=== PATIENT | female | born 1995 | race Caucasian/White ===

== ENCOUNTER 2017-03-17 13:21 | Emergency (ER) | payer OTHER ==
[2017-03-17 13:25] VITALS: TEMP 97.3; BMI 35.2
--- NOTE | 2017-03-17 14:29 | PDOC ---
History of Present Illness - History of Present Illness Initial Comments: 03/17/17 14:41 The patient is a 22 year old female, with a significant past medical history of PCOS (LMP 7 months ago), who presents to the emergency department with headache , dizziness, vomiting, chills and weakness today. 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 She localizes the headache as posterior and to the top of her head with intermittent radiation to the area above her eyes. She reports photophobia. She reports experiencing similar headaches in the past, but denies being diagnosed with migraines or receiving treatment. She reports one episode of vomiting today, nonbilious/nonbloody, followed by generalized weakness and chills. She states she felt as if she were going to faint secondary to her weakness, but denies syncope. She reports having chills all day, but also reports feeling sweaty. She states she has not eaten anything today. She also reports she only drinks about a glass of water a day. Secondarily, she reports her left hand has been intermittently cramping for a week. She states the last episode of hand cramping was two days ago, lasted 3 minutes, and states the severity of the pain made her cry. She denies chest pain and shortness of breath. She denies fever, diarrhea and constipation. She denies dysuria, frequency, urgency and hematuria. Allergies: penicillin Social history: occasional tobacco use PCP - Dr. Hans Vazquez <Serene Brooks - Last Filed: 03/17/17 14:41> <Citlaly Kerr - Last Filed: 03/17/17 15:57> - General Chief Complaint: Migraine Headache Stated Complaint: HEADACHE Time Seen by Provider: 03/17/17 13:36 Past History <Serene Brooks - Last Filed: 03/17/17 14:41> - Past Medical History Thyroid Disease: No - Psycho/Social/Smoking Cessation Hx Anxiety: No Suicidal Ideation: No Smoking History: Never smoked Have you smoked in the past 12 months: No Information on smoking cessation initiated: No Hx Alcohol Use: No Drug/Substance Use Hx: No <Citlaly Kerr - Last Filed: 03/17/17 15:57> - Past Medical History Allergies/Adverse Reactions: Allergies Allergy/AdvReac Type Severity Reaction Status Date / Time No Known Allergies Allergy Verified 03/17/17 13:28 Home Medications: Ambulatory Orders NK [No Known Home Medication] 03/17/17 Review of Systems - Review of Systems Able to Perform ROS?: Yes Comments:: 03/17/17 14:41 GENERAL/CONSTITUTIONAL: (+) chills and generalized weakness. No fever HEAD, EYES, EARS, NOSE AND THROAT: No change in vision. No ear pain or discharge. No sore throat. CARDIOVASCULAR: No chest pain or shortness of breath. RESPIRATORY: No cough, wheezing, or hemoptysis. GASTROINTESTINAL: (+) nausea, vomiting, No diarrhea or constipation. GENITOURINARY: No dysuria, frequency, or change in urination. MUSCULOSKELETAL: No joint or muscle swelling or pain. No neck or back pain. SKIN: No rash NEUROLOGIC: (+) headache and dizziness. No loss of consciousness, or change in strength/sensation. ENDOCRINE: No increased thirst. No abnormal weight change. HEMATOLOGIC/LYMPHATIC: No anemia, easy bleeding, or history of blood clots. ALLERGIC/IMMUNOLOGIC: No hives or skin allergy. <Serene Brooks - Last Filed: 03/17/17 14:41> *Physical Exam - Vital Signs Last Vital Signs Temp Pulse Resp BP Pulse Ox 97.3 F L 78 16 106/66 97 03/17/17 13:22 03/17/17 13:22 03/17/17 13:22 03/17/17 13:22 03/17/17 13:22 - Physical Exam Comments: 03/17/17 14:42 GENERAL: Awake, alert, and fully oriented, in no acute distress HEAD: No signs of trauma EYES: PERRLA, EOMI, sclera anicteric, conjunctiva clear ENT: (+) Dry mucosa. Auricles normal inspection, hearing grossly normal, nares patent, oropharynx clear without exudates. NECK: Normal ROM, supple, no lymphadenopathy, JVD, or masses LUNGS: Breath sounds equal, clear to auscultation bilaterally. No wheezes, and no crackles HEART: Regular rate and rhythm, normal S1 and S2, no murmurs, rubs or gallops ABDOMEN: Soft, nontender, normoactive bowel sounds. No guarding, no rebound. No masses EXTREMITIES: Normal range of motion, no edema. No clubbing or cyanosis. No cords, erythema, or tenderness NEUROLOGICAL: Cranial nerves II through XII grossly intact. Normal speech, normal gait SKIN: Warm, Dry, normal turgor, no rashes or lesions noted. <Serene Brooks - Last Filed: 03/17/17 14:41> - Vital Signs Last Vital Signs Temp Pulse Resp BP Pulse Ox 97.3 F L 78 16 106/66 97 03/17/17 13:22 03/17/17 13:22 03/17/17 13:22 03/17/17 13:22 03/17/17 13:22 <Citlaly Kerr - Last Filed: 03/17/17 15:57> ED Treatment Course - ADDITIONAL ORDERS Additional order review: Laboratory Results 03/17/17 14:25 Urine Color Yellow Urine Appearance Clear Urine pH 5.0 Ur Specific Correll 1.025 Urine Protein Negative Urine Glucose (UA) Negative Urine Ketones Negative Urine Blood Negative Urine Nitrite Negative Urine Bilirubin Negative Urine Urobilinogen Negative Ur Leukocyte Esterase Trace H Urine HCG, Qual Negative <Serene Brooks - Last Filed: 03/17/17 14:41> - LABORATORY CBC & Chemistry Diagram: 03/17/17 14:57 03/17/17 14:57 <Citlaly Kerr - Last Filed: 03/17/17 15:57> Medical Decision Making - Medical Decision Making 03/17/17 15:52 Pt reassessed. States her symptoms have improved. Labs wnl. Stable for DC home. <Citlaly Krer - Last Filed: 03/17/17 15:57> *DC/Admit/Observation/Transfer - Attestations Scribe Attestion: 03/17/17 14:43 Documentation prepared by Serene Brooks, acting as medical practice assistant for Ctilaly Kerr MD, <Serene Brooks - Last Filed: 03/17/17 14:41> - Discharge Dispostion Admit: No <Citlaly Kerr - Last Filed: 03/17/17 15:57> Diagnosis at time of Disposition: Migraine Qualifiers: Migraine type: unspecified Status migrainosus presence: without status migrainosus Intractability: not intractable Qualified Code(s): G43.909 - Migraine, unspecified, not intractable, without status migrainosus - Discharge Dispostion Disposition: HOME Condition at time of disposition: Improved - Referrals Referrals: Hans Vazquez MD [Primary Care Provider] -
[2017-03-17 14:33] LABS: URINE APPEARANCE CLEAR; URINE BILIRUBIN NEGATIVE (NEGATIVE); URINE BLOOD NEGATIVE (NEGATIVE); URINE COLOR YELLOW; URINE GLUCOSE (UA) NEGATIVE (NEGATIVE); URINE KETONE NEGATIVE (NEGATIVE); URINE NITRITE NEGATIVE (NEGATIVE); URINE PROTEIN NEGATIVE (NEGATIVE); URINE UROBILINOGEN NEGATIVE E.U./dl (0.2-1.0)
[2017-03-17 14:39] LABS: URINE LEUK ESTERASE TRACE (NEGATIVE)
[2017-03-17] MEDS ORDERED: KETOROLAC TROMETHAMINE 30 MG/1 ML VIAL IVPUSH ONE (14:39)
[2017-03-17] MEDS ORDERED: METOCLOPRAMIDE HCL INJECTION 10 MG/2 ML VIAL IVPB ONE (14:39)
[2017-03-17] MEDS ORDERED: SODIUM CHLORIDE 1,000 ML IV STA (14:39)
[2017-03-17] MEDS ORDERED: METOCLOPRAMIDE HCL INJECTION 10 MG/2 ML VIAL ONE (14:43)
[2017-03-17] MEDS ORDERED: KETOROLAC TROMETHAMINE 30 MG/1 ML VIAL ONE (14:43)
[2017-03-17 14:53] LABS: URINE MUCUS RARE; URINE RBC 2 /hpf (0-3); URINE WBC 1 /hpf (3-5)
[2017-03-17 15:24] LABS: CALCIUM 9.4 mg/dL (8.5-10.1); COCKROFT - GAULT 189.5585; CREATININE 0.6 mg/dL (0.55-1.02)
[2017-03-17 15:41] LABS: BASOPHIL 0.8 % (0-2.0); EOSINOPHIL 2.8 % (0-4.5); MCH 24.9 pg (25.7-33.7); MCHC 31.9 g/dl (32.0-36.0); MEAN CELL VOLUME 78.1 fl (80-96); MEAN PLT VOLUME 8.8 fl (7.5-11.1); NEUTROPHILS 62.1 % (42.8-82.8); PLATELET COUNT 308 K/MM3 (134-434); RDW 15.9 % (11.6-15.6); WHITE BLOOD COUNT 9.4 K/mm3 (4.0-10.0)
[2017-03-17 15:57] VITALS: BP 110/71; PULSE 73
== END 2017-03-17 15:57 | disposition home or self-care (01) ==
LOC: JER 13:21
PROC: 3E0333Z Introduction of Anti-inflammatory into Peripheral Vein, Percutaneous Approach (ICD-10-PCS; principal; 2017-03-17)
PROC: 3E033GC Introduction of Other Therapeutic Substance into Peripheral Vein, Percutaneous Approach (ICD-10-PCS; 2017-03-17)
PROC: 3E0337Z Introduction of Electrolytic and Water Balance Substance into Peripheral Vein, Percutaneous Approach (ICD-10-PCS; 2017-03-17)
DX: G43.909 Migraine, unspecified, not intractable, without status migrainosus (principal); E28.2 Polycystic ovarian syndrome
CPT/HCPCS: 36415; 80048; 81003; 81015; 84703; 85025; 99282-25

== ENCOUNTER 2018-10-18 23:28 | Emergency (ER) | payer OTHER | END 2018-10-19 02:58 | disposition left against medical advice (07) | LOC: JER 23:28 | DX: Z53.21 Procedure and treatment not carried out due to patient leaving prior to being seen by health care provider (principal) | CPT/HCPCS: 99281-25 ==

== ENCOUNTER 2018-10-19 00:05 | Emergency (ER) | payer OTHER ==
[2018-10-19] MEDS ORDERED: ALPRAZolam 1 MG TABLET PO PRN (00:09)
--- NOTE | 2018-10-19 00:09 | PDOC ---
History of Present Illness - General Chief Complaint: Respiratory Stated Complaint: PRODUCTIVE COUGH/SOB Time Seen by Provider: 10/19/18 00:09 History Source: Patient Exam Limitations: No Limitations - History of Present Illness Initial Comments: 10/19/18 00:10 This is a 23-year-old female who comes in complaining of acute onset of shortness of breath, palpitations, chest tightness, anxiety, crying, feeling that something bad is can happen to her. Patient has history of similar symptoms in the past but never saw anybody or had them worked up. Patient comes in for evaluation and is noted to be hyperventilating during my interview. Patient said that she is having a little bit of a productive cough recently and is concerned that she might have asthma however has never been diagnosed as asthma. Allergies: None Past Medical History: none Social history: Lives with family. No smoking. No alcohol. No illicit drugs. Surgical history: None General: No fevers or chills, no weakness, no weight loss HEENT: No change in vision. No sore throat,. No ear pain CardioVascular: + chest discomfort. + shortness of breath. + palpitations Respiratory:No cough, or wheezing. Gastrointestinal: no nausea, vomiting, diarrhea or constipation, No rectal bleeding Genitourinary: No dysuria, hematuria, or frequency Musculoskeletal: No joint or muscle pain or swelling Neurologic: No headache, vertigo, dizziness or loss of consciousness Psychiatric: nor depression Skin: No rashes or easy bruising Endocrine: no increased thirst or abnormal weight change Allergic: no skin or latex allergy All other systems reviewed and normal Exam: General: Well-nourished well-developed individual, no acute distress HEENT: Throat: Normal, tonsils normal, no erythema or exudate Neck: Supple, no meningeal signs, no lymphadenopathy Eyes::Pupils equal reactive and round, extraocular motion intact Chest: Nontender to palpation Cardiac: S1-S2 normal, regular rate and rhythm, no murmurs rubs or gallops Respiratory: Lungs clear to auscultation bilateral Abdomen: Soft, nondistended, normal bowel sounds, there is no tenderness on palpation diffusely Extremities: Warm, dry, no cyanosis, clubbing, or edema Skin: No rashes Neuro: Alert and oriented x3, CN II - XII intact, nonfocal exam with normal strength, normal sensation, normal reflexes, normal gait, Psych: Anxious mood and affect 10/19/18 00:40 Reevaluation: Patient's symptoms have completely resolved post Xanax. Patient discharged home with her significant other. Patient will follow-up with her therapist Past History - Past Medical History Allergies/Adverse Reactions: Allergies Allergy/AdvReac Type Severity Reaction Status Date / Time Penicillins Allergy Verified 10/19/18 00:18 Home Medications: Ambulatory Orders NK [No Known Home Medication] 10/19/18 COPD: No Thyroid Disease: Yes - Immunization History Immunization Up to Date: No - Suicide/Smoking/Psychosocial Hx Smoking History: Never smoked Have you smoked in the past 12 months: No Hx Alcohol Use: No Drug/Substance Use Hx: No Substance Use Type: None *DC/Admit/Observation/Transfer Diagnosis at time of Disposition: Anxiety - Discharge Dispostion Disposition: HOME Condition at time of disposition: Stable Decision to Admit order: No - Referrals - Patient Instructions Additional Instructions: Your symptoms most likely was secondary to an anxiety or panic attack. It is possible for this to reoccur from time to time. Return to the emergency department immediately with ANY new, persistent or worsening symptoms. Continue any medications as previously prescribed by your physician. You should follow up with your primary doctor as soon as possible regarding today's emergency department visit. . Please make sure your doctor reviews the results of your emergency evaluation. Thank you for coming to the Emergency Department today for your care. It was a pleasure to see you today. Please note that your evaluation is INCOMPLETE until you follow-up with your doctor. - Post Discharge Activity
[2018-10-19] MEDS ORDERED: ALPRAZolam 1 MG TABLET PO STA (00:19)
[2018-10-19] MEDS ORDERED: ALPRAZolam 0.25 MG TABLET ONE (00:21)
[2018-10-19 00:27] VITALS: BP 127/86; PULSE 88; TEMP 98.5; BMI 32.3
== END 2018-10-19 00:44 | disposition home or self-care (01) ==
LOC: FER 00:05
DX: F41.9 Anxiety disorder, unspecified (principal); E07.9 Disorder of thyroid, unspecified
CPT/HCPCS: 99281-25

== ENCOUNTER 2018-12-20 11:42 | Emergency (ER) | payer SELFPAY ==
[2018-12-20 11:49] VITALS: BP 112/72; PULSE 77; TEMP 97.9; BMI 26.6
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
== END 2018-12-20 12:57 | disposition home or self-care (01) ==
LOC: JERFT 11:42
DX: O99.345 Other mental disorders complicating the puerperium (principal); S16.1XXA Strain of muscle, fascia and tendon at neck level, initial encounter; V43.52XA Car driver injured in collision with other type car in traffic accident, initial encounter; Y92.414 Local residential or business street as the place of occurrence of the external cause; Y93.89 Activity, other specified; Y99.8 Other external cause status
CPT/HCPCS: 99281-25

== ENCOUNTER 2020-09-24 21:02 | Day surgery (SDC) | payer OTHER ==
--- OUTSIDE RECORDS SUMMARY | 2020-09-24 21:13 | XMS ---
:1995 [facility] Providers Name Role Phone ED STAFF PHYSICIANSHERIN Unavailable Unavailable ED STAFF PHYSICIAN, STAFF Unavailable Unavailable YING GONZALEZ Unavailable Unavailable Re-disclosure Warning The records that you are about to access may contain information from federally- assisted alcohol or drug abuse programs. If such information is present, then the following federally mandated warning applies: This information has been disclosed to you from records protected by federal confidentiality rules (42 CFR part 2). The federal rules prohibit you from making any further disclosure of this information unless further disclosure is expressly permitted by the written consent of the person to whom it pertains or as otherwise permitted by 42 CFR part 2. A general authorization for the release of medical or other information is NOT sufficient for this purpose. The Federal rules restrict any use of the information to criminally investigate or prosecute any alcohol or drug abuse patient.The records that you are about to access may contain highly sensitive health information, the redisclosure of which is protected by Article 27-F of the [facility] Public Health law. If you continue you may haveaccess to information: Regarding HIV / AIDS; Provided by facilities licensed or operated by the [facility] Office of Mental Health; or Provided by the [facility] Office for People With Developmental Disabilities. If such information is present, then the following [facility] mandated warning applies: This information has been disclosed to you from confidential records which are protected by state law. State law prohibits you from making any further disclosure of this information without the specific written consent of the person to whom it pertains, or as otherwise permitted by law. Any unauthorized further disclosure in violation of state law may result in a fine or fpc sentence or both. A general authorization for the release of medical or other information is NOT sufficient authorization for further disclosure. Encounters Encounter Providers Location Date Indications Data Source(s ) Outpatient 03/19/2020 [facility] 03:10:00 PM ([facility]) Outpatient Attender: CARLOS [facility]: [facility] Attender: SHERIN ED STAFF H 02/13/2020 09:41:00 AM [facility] PHYSICIANAttender: STAFF ED EDT - 02/13/2020 [facility] STAFF PHYSICIANAdmitter: 09:10:00 PM EDT SHERIN ED STAFF PHYSICIAN Patient discharged. Insurance Providers Payer name Policy Policy ID Covered Covered Policy Plan Info rmation type / republican ID republican's Lowery Coverage relationship type to lowery LOCAL [id number] SP [id number] 13 - 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 [facility]S [facility] depressive depressive 06:40:00 PM ([place] episodes, episodes, EDT [facility]) [id number] Generalized Generalized Complaint 03/20/2020 [facility] anxiety disorder anxiety disorder 04:00:00 PM ( [facility]) Z03.818 Encounter for ENCNTR FOR OBS Diagnosis 03/16/2020 [facility] w[facility] observation for FOR SUSP EXPSR TO 03:55:00 PM [facility] suspected OTH BIOLG AGENTS EDT Care exposure to other RULED OUT Corpora tion biological agents ruled out Results ID Date Data Source [id number] 03/16/2020 12:00:00 AM EDT [facility] Name Value Range Interpretation Code Description Data Haylie rce(s) Supporting Document(s ) 2019-nCoV [facility] RNA XXX FRANCISCO+probe- Imp This lab was ordered by [facility] and reported by [employer] ID Date Data Source [id number] 02/13/2020 12:18:00 PM EDT [facility] Name Value Range Interpretation Code Description Data Haylie rce(s) Supporting Document(s ) RESULT [facility] This lab was ordered by MOLLY nolasco nd reported by [facility]. Procedure
--- NOTE | 2020-09-24 21:33 | PDOC ---
History of Present Illness - General Chief Complaint: Pain Stated Complaint: LOWER ABD/BACK PAIN Time Seen by Provider: 09/24/20 21:15 - History of Present Illness Initial Comments: This 25-year-old woman with a history of PCOS but no other significant medical issues presents with 3-day history of lower back pain radiating to bilateral lower quadrants of her abdomen. She also has noted softer stool than normal for the last few weeks; no nausea/vomiting/diarrhea. No fever or chills. She denies dysuria, hematuria, urinary frequency or urgency. She has a history of irregular menstrual periods; LMP 07/10. She has had no abnormal vaginal discharge or spotting. She was seen in urgent care clinic today and was referred to the ER for further evaluation Medications as noted below Allergy: Penicillin Non-smoker/no daily alcohol or other recreational drug use Past History - Medical History Allergies/Adverse Reactions: Allergies Allergy/AdvReac Type Severity Reaction Status Date / Time Penicillins Allergy Verified 12/20/18 11:45 COPD: No Psychiatric Problems: Yes (post depression) Thyroid Disease: Yes Other medical history: PCOS - Reproductive History Is Patient Now?: No - Immunization History Immunization Up to Date: No - Psycho-Social/Smoking History Smoking History: Never smoked Have you smoked in the past 12 months: No - Substance Abuse Hx (Audit-C & DAST Scrn) How often the patient has a drink containing alcohol: 2-4 times / month How often the patient has six or more drinks on one occasion: Never Score: In Men: 4 or > Positive; In Women: 3 or > Positive: 2 Screen Result (Pos requires Nsg. Audit-10AR): Negative In the last yr the pt used illegal drug/Rx for NonMed reason: Yes Score: Yes response is considered Positive: 1 Screen Result (Positive result requires Nsg. DAST-10): Positive Review of Systems - Review of Systems Able to Perform ROS?: Yes Comments:: 12 point review of systems is negative except for what is noted in the history of present illness *Physical Exam - Vital Signs Last Vital Signs Temp Pulse Resp BP Pulse Ox 98.3 F 74 18 132/90 100 09/24/20 21:10 09/24/20 21:10 09/24/20 21:10 09/24/20 21:10 09/24/20 21:10 - Physical Exam GENERAL: Adult female, alert and oriented x3, moderately obese; in no acute distress HEAD: Normal with no signs of trauma. EYES: PERRLA, EOMI, sclera anicteric, conjunctiva clear. ENT: Ears normal, nares patent, oropharynx clear without exudates. Dry mucous membranes. NECK: Normal range of motion, supple without lymphadenopathy, JVD, or masses. LUNGS: Breath sounds equal, clear to auscultation bilaterally. No wheezes, and no crackles. HEART:Regular rate and rhythm, normal S1 and S2 without murmur, rub or gallop. ABDOMEN:.normal bowel sounds mild tenderness to palpation right and left lower quadrants ; no guarding or rebound.No masses No distention. EXTREMITIES: Normal range of motion, no edema. No clubbing or cyanosis. No erythema, or tenderness. NEUROLOGICAL: Cranial nerves II through XII grossly intact. Normal speech. No focal neurological deficits. ED Treatment Course - LABORATORY CBC & Chemistry Diagram: 09/24/20 21:55 09/24/20 21:55 Medical Decision Making - Medical Decision Making As noted above, this 25-year-old woman presents with a 3-day history of lower back pain, involving to bilateral lower quadrant pain without associated symptoms. Exam reveals tenderness in bilateral lower quadrants without guarding or rebound Laboratory evaluation including CBC, chemistry profile and urinalysis are essentially normal Because of patient's right lower quadrant tenderness, abdominal/pelvic CT with IV and oral contrast performed Imaging study preliminary interpretation by Imaging special education kindergarten teacher: Borderline dilated appendix at 7.7-8.6 mm with significant periappendiceal inflammation, predominantly in its midportion. This is suspicious for early acute appendi citis. There are also a few mildly enlarged lymph nodes in the right lower quadrant. No abscess or perforation. No free fluid or bowel obstruction noted. Patient has history of penicillin allergy; she states that she was very young and does not know the nature of her allergic response. Levaquin 750 mg IV and Flagyl [address] Florez (covering for his partner, ) contacted and case discussed. He formally requested a rapid Covid test be performed 09/25/20 01:30 Rapid COVID-19 test PCR (in-house) performed and sent to lab Patient related at this point that her mother tested positive for COVID-19 this morning (24-hour history of fever and headache). Patient had standard COVID-19 test performed at urgent care today (results pending). Patient does not live with her mother; she last had close contact with her mother the evening of September 20 09/25/20 01:53 [facility] Patient to be admitted to her service with consult to general surgery, Dr. Florez. 09/25/20 03:40 Rapid COVID-19 PCR negative Patient complaining of headache; acetaminophen 1 g IV ordered Discharge - Discharge Information Problems reviewed: Yes Clinical Impression/Diagnosis: Acute appendicitis Qualifiers: Acute appendicitis type: other Qualified Code(s): K35.890 - Other acute appendicitis without perforation or gangrene Condition: Stable - Admission Yes - Follow up/Referral - Patient Discharge Instructions - Post Discharge Activity
[2020-09-24 22:03] LABS: BASO % 1.3 % (0-2.0); EOS % 2.1 % (0-4.5); HEMATOCRIT 35.8 % (32.4-45.2); HEMOGLOBIN 11.4 GM/dl (10.7-15.3); LYMPH % 39.3 % (8-40); MEAN CELL VOLUME 78.3 fl (80-96); MEAN PLT VOLUME 8.4 fl (7.5-11.1); MONO % 5.6 % (3.8-10.2); NEUT % 51.7 % (42.8-82.8); PLATELET COUNT 294 K/MM3 (134-434); RBC 4.57 M/mm3 (3.60-5.2); RDW 15.2 % (11.6-15.6); WHITE BLOOD COUNT 8.1 K/mm3 (4.0-10.8)
[2020-09-24 22:16] LABS: ALBUMIN 4.4 g/dl (3.4-5.0); BILIRUBIN,TOTAL 0.3 mg/dl (0.2-1); CALCIUM 8.9 mg/dl (8.5-10); CREATININE 0.6 mg/dl (0.55-1.3); POTASSIUM 3.7 mmol/L (3.5-5.1)
[2020-09-25] MEDS ORDERED: LEVOFLOXACIN IVPB ONE (01:13)
[2020-09-25] MEDS ORDERED: MORPHINE SULFATE 2 MG/ML VIAL IVPUSH PRN (01:50)
--- OUTSIDE RECORDS SUMMARY | 2020-09-25 01:55 | XMS ---
:1995 Author Organization [facility] Care Team Providers Name Role Phone ED [...] is protected by Article 27-F of the [facility] Public Health law. If you continue you may haveaccess to information: Regarding HIV / AIDS; Provided by facilities licensed or operated by the [facility] Office of Mental Health; or Provided by the [facility] Office for People With Developmental Disabilities. If such information is present, then the following [facility] mandated warning applies: This information has been [...] law may result in a fine or chcf sentence or both. A general authorization for the release of medical or other information is NOT sufficient authorization for further disclosure. Encounters Encounter Providers Location Date Indications Data Source(s ) Outpatient 03/19/2020 NETSMART 03:10:00 PM ([facility]) Outpatient Attender: CARLOS 03[facility]16[facility]2020 [facility]: [facility] C are CARLOS [employer] [facility] Z03.818 Emergency Attender: SHERNI ED STAFF H 02/13/2020 09:41:00 AM [facility] PHYSICIANAttender: STAFF ED EDT - 02/13/2020 [facility] Center STAFF PHYSICIANAdmitter: 09:10:00 PM EDT SHERIN ED STAFF PHYSICIAN Patient discharged. Insurance Providers Payer name Policy Policy ID Covered Covered Policy Plan Info rmation type / green party ID green party's Lowery Coverage relationship type to lowery AFFINITY [id number] SP [id number] [address] [facility] [id number] SP [id number] [id number] O [id number] 01 [id number] 13 O [facility] [id number] [place] [id number] SP [id number] 13 - [facility] Problems, Conditions, and Diagnoses Code Display Name Description Problem Type Effective Data Sour ce(s) Dates 441245405 Anxiety disorder Anxiety disorder Complaint 04/18/2020 NE TSMART (disorder) (disorder) 04:00:00 AM ([facility]) [id number] Posttraumatic Posttraumatic Complaint 03/26/2020 NETSMART stress disorder stress disorder 06:45:00 PM ([facility]) [id number] 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 NETS MART depressive depressive 06:40:00 PM [facility] [facility] [id number] Generalized Generalized Complaint 03/20/2020 NETSMART anxiety disorder anxiety disorder 04:00:00 PM ( [facility]) Z03.818 Encounter for ENCNTR FOR OBS Diagnosis 03/16/2020 Rojelio ster observation for FOR SUSP EXPSR TO 03:55:00 PM [facility] suspected OTH BIOLG AGENTS EDT Care exposure to other RULED OUT Corpora tion biological agents ruled out Results ID Date Data Source [id number] 03/16/2020 12:00:00 AM EDT [facility] Name Value Range Interpretation Code Description Data Haylie rce(s) Supporting Document(s ) 2019-nCoV [facility] RNA XXX FRANCISCO+probe- Imp This lab was ordered by [facility] and reported by [employer] ID Date Data Source [id number] 02/13/2020 12:18:00 PM EDT [facility] Name Value Range Interpretation Code Description Data Haylie rce(s) Supporting Document(s ) RESULT [facility] This lab was ordered by MOLLY nolasco nd reported by [facility] [place]. Procedure
[2020-09-25] MEDS: SODIUM CHLORIDE 1,000 ML IV SCH (02:39)
[2020-09-25] MEDS ORDERED: ACETAMINOPHEN 1000 MG/100 ML VIAL (NON FORMULARY) IVPB ONE (03:46)
[2020-09-25] MEDS ORDERED: ACETAMINOPHEN INJECTION 100 ML IVPB ONE (03:47)
[2020-09-25 04:43] VITALS: BMI 33.4
--- NOTE | 2020-09-25 07:14 | HP ---
CHIEF COMPLAINT: Abdominal pain PCP: Dr. Hans Vazquez HISTORY OF PRESENT ILLNESS: 25 year-old female with a PMH significant for PCOS, presents to the ED for evaluation of lower back pain radiating to bilateral lower quadrants of her abdomen x 3 days. Denies nausea/vomiting/diarrhea. No fever, sweats, or chills. She denies dysuria, hematuria, urinary frequency or urgency. She has a history of irregular menstrual periods; LMP 8/18. She has had no abnormal vaginal discharge or spotting. She was seen in urgent care clinic today and was referred to the ER for further evaluation. ER course was notable for: (1) CTAP: early acute appendicitis Recent Travel: No PAST MEDICAL HISTORY: PCOS Migraines Post depression PAST SURGICAL HISTORY: None reported Social History: Smoking: never Alcohol: occasional Drugs: no Family history: reviewed and non-contributory Allergies Penicillins Allergy (Verified 12/20/18 11:45) HOME MEDICATIONS: None REVIEW OF SYSTEMS CONSTITUTIONAL: Absent: fever, chills, diaphoresis, generalized weakness, malaise, loss of appetite, weight change HEENT: Absent: rhinorrhea, nasal congestion, throat pain, throat swelling, difficulty swallowing, mouth swelling, ear pain, eye pain, visual changes CARDIOVASCULAR: Absent: chest pain, syncope, palpitations, irregular heart rate, lightheadedness, peripheral edema RESPIRATORY: Absent: cough, shortness of breath, dyspnea with exertion, orthopnea, wheezing, stridor, hemoptysis GASTROINTESTINAL: +bilateral lower quadrant pain Absent: abdominal pain, abdominal distension, nausea, vomiting, diarrhea, constipation, melena, hematochezia GENITOURINARY: Absent: dysuria, frequency, urgency, hesitancy, hematuria, flank pain, genital pain MUSCULOSKELETAL: Absent: myalgia, arthralgia, joint swelling, back pain, neck pain SKIN: Absent: rash, itching, pallor HEMATOLOGIC/IMMUNOLOGIC: Absent: easy bleeding, easy bruising, lymphadenopathy, frequent infections ENDOCRINE: Absent: unexplained weight gain, unexplained weight loss, heat intolerance, cold intolerance NEUROLOGIC: Absent: headache, focal weakness or paresthesias, dizziness, unsteady gait, seizure, mental status changes, bladder or bowel incontinence PSYCHIATRIC: Absent: anxiety, depression, suicidal or homicidal ideation, hallucinations. PHYSICAL EXAMINATION Vital Signs - 24 hr 09/24/20 09/25/20 09/25/20 21:10 01:41 01:50 Temperature 98.3 F 98.2 F 98.2 F Pulse Rate 74 Pulse Rate [ 89 Radial] Respiratory 18 18 18 Rate Blood Pressure 132/90 Blood Pressure 142/86 [Right Arm] O2 Sat by Pulse 100 98 98 Oximetry (%) 09/25/20 06:00 Temperature 98.0 F Pulse Rate 83 Pulse Rate [ Radial] Respiratory 18 Rate Blood Pressure 103/63 Blood Pressure [Right Arm] O2 Sat by Pulse 95 Oximetry (%) Patient was seen and evaluated s/p lap appendectomy. GENERAL: Awake, alert, and fully oriented, in no acute distress. Eating tacos and guacamole. HEAD: Normal with no signs of trauma. EYES: Pupils equal, round and reactive to light, extraocular movements intact, sclera anicteric, conjunctiva clear. No lid lag. LUNGS: Breath sounds equal, clear to auscultation bilaterally. No wheezes, and no crackles. No accessory muscle use. HEART: Regular rate and rhythm, normal S1 and S2 ABDOMEN: Soft, diffusely tender s/p surgery MUSCULOSKELETAL: Normal range of motion at all joints. No bony deformities or tenderness. No CVA tenderness. UPPER EXTREMITIES: 2+ pulses, warm, well-perfused. No cyanosis. No clubbing. No peripheral edema. LOWER EXTREMITIES: 2+ pulses, warm, well-perfused. No calf tenderness. No peripheral edema. NEUROLOGICAL: Cranial nerves II-XII intact. Normal speech. Laboratory Results - last 24 hr 09/24/20 09/24/20 09/24/20 21:40 21:40 21:55 WBC 8.1 RBC 4.57 Hgb 11.4 Hct 35.8 MCV 78.3 L MCH 25.0 L MCHC 32.0 RDW 15.2 Plt Count 294 MPV 8.4 Absolute Neuts (auto) 4.1 Neutrophils % 51.7 Lymphocytes % 39.3 Monocytes % 5.6 Eosinophils % 2.1 Basophils % 1.3 Sodium Potassium Chloride Carbon Dioxide Anion Gap BUN Creatinine Est GFR (CKD-EPI)AfAm Est GFR (CKD-EPI)NonAf Random Glucose Calcium Total Bilirubin AST ALT Alkaline Phosphatase Total Protein Albumin Lipase Urine Color Yellow Urine Appearance Clear Urine pH 6.0 Urine Protein Negative Urine Glucose (UA) Negative Urine Ketones Negative Urine Blood Negative Urine Nitrite Negative Urine Bilirubin Negative Urine Urobilinogen 0.2 Ur Leukocyte Esterase Negative Urine HCG, Qual Negative SARS-CoV-2 (PCR) 09/24/20 09/25/20 21:55 01:34 WBC RBC Hgb Hct MCV MCH MCHC RDW Plt Count MPV Absolute Neuts (auto) Neutrophils % Lymphocytes % Monocytes % Eosinophils % Basophils % Sodium 137 Potassium 3.7 Chloride 103 Carbon Dioxide 26 Anion Gap 8 BUN 13.0 Creatinine 0.6 Est GFR (CKD-EPI)AfAm 146.83 Est GFR (CKD-EPI)NonAf 126.68 Random Glucose 97 Calcium 8.9 Total Bilirubin 0.3 AST 15 ALT 16 Alkaline Phosphatase 89 Total Protein 8.0 Albumin 4.4 Lipase 99 Urine Color Urine Appearance Urine pH Urine Protein Urine Glucose (UA) Urine Ketones Urine Blood -- Urine Nitrite Urine Bilirubin Urine Urobilinogen Ur Leukocyte Esterase Urine HCG, Qual SARS-CoV-2 (PCR) Negative ASSESSMENT/PLAN: 25 year-old female with a PMH significant for PCOS, 23-hour admit for acute appendicitis. Acute appendicitis --s/p lap appendectomy earlier today with Dr. Florez; appendix thickened, inflamed, not perforated --perioperative antibiotics per surgery --pain well-managed --has voided post-op, +flatus --tolerating regular diet Dispo: discharge in am. Family Medical History Family History: As Documented Visit type - Emergency Visit Emergency Visit: Yes Care time: The patient presented to the Emergency Department on the above date and was hospitalized for further evaluation of their emergent condition. - New Patient This patient is new to me today: Yes Date on this admission: 09/26/20 - Critical Care Critical Care patient: No
[2020-09-25] MEDS ORDERED: ONDANSETRON 4 MG/2 ML VIAL IVPUSH PRN ×2 (11:01→11:23)
[2020-09-25] MEDS ORDERED: fentaNYL CITRATE 250 MCG/5 ML VIAL ONE (11:19)
[2020-09-25] MEDS ORDERED: MIDAZOLAM HCL 2 MG/2 ML SINGLE DOSE VIAL ONE (11:20)
[2020-09-25] MEDS ORDERED: ACETAMINOPHEN 325 MG TABLET (FP) PO PRN (11:23)
[2020-09-25] MEDS ORDERED: oxyCODONE HCL 5 MG TABLET PO PRN (11:23)
[2020-09-25] MEDS ORDERED: morphine SULFATE 4 MG/ML VIAL IVPB PRN (11:23)
--- NOTE | 2020-09-25 11:26 | OP ---
Operative Note - Note: Operative Date: 09/25/20 Pre-Operative Diagnosis: acute appendicitis Operation: laparoscopic appendectomy, lavage. thickened inflamed, non perforated appendix Post-Operative Diagnosis: Same as Pre-op Surgeon: Alexsander Florez Anesthesiologist/AIRCRAFT WORKER: Diandra Kerns Anesthesia: General Specimens Removed: appendix Estimated Blood Loss (mls): 10 Operative Report Dictated: Yes
[2020-09-25] MEDS ORDERED: ROCURONIUM BROMIDE 50 MG/5 ML VIAL ONE (11:34)
[2020-09-25] MEDS ORDERED: ONDANSETRON 4 MG/2 ML VIAL ONE ×2 (11:43→12:12)
[2020-09-25] MEDS ORDERED: DEXAMETHASONE SOD PHOSPHATE 4 MG/1 ML VIAL ONE (11:43)
--- NOTE | 2020-09-25 11:47 | CONS ---
DATE OF CONSULTATION: 09/25/2020 REASON FOR CONSULTATION: Acute appendicitis. This is an emergency consultation requested by the emergency room physician. BRIEF HISTORY: This is a 25-year-old female, presents with 4-day history of abdominal pain, decreased appetite. She denied nausea or vomiting. While in the emergency room at [facility] she was noted to have no fever. Her white blood cell count was normal. There was no shift. However, she had a CAT scan of her abdomen and pelvis which was consistent with early appendicitis. The appendix was noted to be borderline in size, showed some inflammatory changes around it as well as reactive lymph nodes and the radiologist felt this was consistent with appendicitis. The patient was admitted to the hospital. She was started on Levaquin and Flagyl antibiotic with some improvement in her symptoms. She had no fever. She was tested negative for the COVID virus. Request is made for a surgical evaluation. PAST MEDICAL HISTORY: Significant for polycystic ovary disease as well as chronic headaches. PAST SURGICAL HISTORY: Includes a section. SOCIAL HISTORY: Positive for marijuana. FAMILY HISTORY: Negative for malignancy in immediate family. ALLERGIES: She has allergies to PENICILLIN. MEDICATIONS: She takes no medications except for headache pills. REVIEW OF SYSTEMS: General: Denies fatigue or malaise. Cardiac: Denies chest pain or palpitations. Respiratory: Denies shortness of breath or wheeze. Gastrointestinal: As in HPI. Denies nausea. Denies vomiting. Denies diarrhea. Denies recent weight loss. Genitourinary: Denies dysuria. Musculoskeletal: Denies joint pain. Psychiatric: Denies hearing voices. PHYSICAL EXAMINATION: General: This is an obese 25-year-old female in no distress. Vital Signs: She is afebrile. HEENT: Her head is normocephalic. Sclerae are anicteric. Neck: Supple. Chest: Clear. Abdomen: Soft. It is obese. She has mild tenderness in the right lower quadrant as well as the left lower quadrant. She has no guarding. She has no rebound. She has a well-healed Pfannenstiel incision without obvious hernia. Extremities: No edema. LABORATORY: On review her laboratory, as stated in the HPI. CAT scan is as stated in the HPI. ASSESSMENT: This is a 25-year-old female who presents with 4-day history of abdominal pain located in the lower abdomen. She has CAT scan findings consistent with early acute appendicitis. At this point with an abnormal appendix with inflammatory changes consistent with appendicitis, CAT scan is 95% specific for appendicitis. Also, her physical exam findings although are not impressive, do have tenderness in the lower abdomen. At this point I agree that clinically this is acute appendicitis. I agree with admission. I agree with intravenous antibiotics. I will move in the direction of surgery. Risks and benefits of surgery have been explained to patient in detail. These are including but not limited to the possibility of conversion to open, the possibility of injury to viscera or bladder, the possibility of blood loss requiring blood transfusion, the possibility of future obstruction, possibility of future hernia, possibility of misdiagnosis, possibility of this being a nontherapeutic laparoscopy plus a multitude of medical risks including but not limited to cardiac, neurologic, pulmonary and vascular complications, even . Patient also understands that she currently has a negative COVID test. However, if this is a false-negative test then surgery could lead to respiratory failure, thromboembolic events and as well. Patient understands these risks. She has also been offered medical management and declined. She prefers the more definitive nature of surgery, likely decreased length of stay and the ability to pathologically evaluate the appendix while eliminating future diagnostic uncertainty. At this point will move in the direction of surgery. DO LISA WILKS/[id number]
[2020-09-25] MEDS ORDERED: NEOSTIGMINE METHYLSULFATE 0.5 MG/ML - 10 ML MDV ONE (12:09)
[2020-09-25] MEDS ORDERED: GLYCOPYRROLATE 0.2 MG/1 ML VIAL ONE (12:09)
--- OUTSIDE RECORDS SUMMARY | 2020-09-25 13:32 | XMS ---
[...] is protected by Article 27-F of the [facility] Public Health law. If you continue you may haveaccess to information: Regarding HIV / AIDS; Provided by facilities licensed or operated by the [facility] Office of Mental Health; or Provided by the [facility] Office for People With Developmental Disabilities. If such information is present, then the following [facility] mandated warning applies: [...] law may result in a fine or custodial sentence or both. A general authorization for the release of medical or other information is NOT sufficient authorization for further disclosure. Encounters Encounter Providers Location Date Indications Data Source(s ) Outpatient 03/19/2020 NETSMART 03:10:00 PM ([facility]) Outpatient Attender: CARLOS 03/16/2020 Z03.818 [facility]: [facility] C [facility] CARLOS [employer] [facility] Z03.818 Emergency Attender: SHERIN ED STAFF H 02/13/2020 09:41:00 AM [facility] PHYSICIANAttender: STAFF ED EDT - 02/13/2020 [facility] STAFF PHYSICIANAdmitter: 09:10:00 PM EDT SHERIN ED STAFF PHYSICIAN Patient discharged. Insurance Providers Payer name Policy Policy ID Covered Covered Policy Plan Info rmation type / democrat ID democrat's Lowery Coverage relationship type to lowery AFFINITY [id number] SP [id number] [facility] [id number] SP [id number] 13 - [facility] [id number] O [id number] 01 [id number] 13 O [facility] [id number] [place] [id number] SP [id number] 13 - [facility] Problems, Conditions, and Diagnoses Code Display Name Description Problem Type Effective Data Sour ce(s) Dates 892417147 Anxiety disorder Anxiety disorder Complaint 04/18/2020 NE TSMART (disorder) (disorder) 04:00:00 AM (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) Z03.818 Encounter for ENCNTR FOR OBS Diagnosis 03/16/2020 Rojelio ster observation for FOR SUSP EXPSR TO 03:55:00 PM [facility] suspected OTH BIOLG AGENTS EDT Care exposure to other RULED OUT Corpora tion biological agents ruled out Results ID Date Data Source [id number] 03/16/2020 12:00:00 AM EDT [facility] Name Value Range Interpretation Code Description Data Haylie rce(s) Supporting Document(s ) 2019-nCoV [facility] RNA XXX FRANCISCO+probe- Imp This lab was ordered by [facility] and reported by [employer] ID Date Data Source [id number] 02/13/2020 12:18:00 PM EDT [facility] Name Value Range Interpretation Code Description Data Haylie rce(s) Supporting Document(s ) RESULT [facility] This lab was ordered by MOLLY onlasco nd reported by [facility] [place]. Procedure
[2020-09-25] MEDS: LACTATED RINGERS SOLUTION 1,000 ML IV SCH (16:20)
[2020-09-25] MEDS: IBUPROFEN 800 MG/8 ML IJ IVPB PRN (19:44)
[2020-09-26 08:14] LABS: CALCIUM 9.2 mg/dl (8.5-10); CREATININE 0.7 mg/dl (0.55-1.3); POTASSIUM 3.6 mmol/L (3.5-5.1)
[2020-09-26 08:15] LABS: HEMOGLOBIN 13.2 GM/dl (10.7-15.3); MCHC 31.5 g/dl (32.0-36.0); MEAN CELL VOLUME 79.3 fl (80-96); MEAN PLT VOLUME 8.6 fl (7.5-11.1); PLATELET COUNT 406 K/MM3 (134-434); RBC 5.29 M/mm3 (3.60-5.2); RDW 15.4 % (11.6-15.6); WHITE BLOOD COUNT 10.8 K/mm3 (4.0-10.8)
[2020-09-26 08:25] LABS: INR 1.27 (0.82-1.09); PROTHROMBIN TIME (PATIENT) 14.2 SEC (10.2-13.0)
--- NOTE | 2020-09-26 09:25 | DS ---
Physical Exam: SUBJECTIVE: Patient seen and examined OBJECTIVE: Vital Signs Period Temp Pulse Resp BP Sys/Buchanan Pulse Ox Last 24 Hr 98 F-98.6 F 69-91 10-18 104-124/54-78 95-100 PHYSICAL EXAM GENERAL: The patient is awake, alert, and fully oriented, in no acute distress. HEAD: Normal with no signs of trauma. EYES: PERRL, extraocular movements intact, sclera anicteric, conjunctiva clear. LUNGS: Breath sounds equal, clear to auscultation bilaterally, no wheezes, no crackles, no accessory muscle use. HEART: Regular rate and rhythm, S1, S2 without murmur, rub or gallop. ABDOMEN: Soft, mildly tender over umbilicus, surgical port surgi-seal, no drainage, no erythema, no fluctuance EXTREMITIES: 2+ pulses, warm, well-perfused, no edema. NEUROLOGICAL: Cranial nerves II through XII grossly intact. Normal speech. LABS Laboratory Results - last 24 hr 09/26/20 09/26/20 09/26/20 07:12 07:12 07:12 WBC 10.8 RBC 5.29 H Hgb 13.2 Hct 42.0 D MCV 79.3 L MCH 25.0 L MCHC 31.5 L RDW 15.4 Plt Count 406 MPV 8.6 PT with INR 14.2 H INR 1.27 H Sodium 136 Potassium 3.6 Chloride 102 Carbon Dioxide 25 Anion Gap 9 BUN 8.0 Creatinine 0.7 Est GFR (CKD-EPI)AfAm 139.57 Est GFR (CKD-EPI)NonAf 120.42 Random Glucose 96 Calcium 9.2 HOSPITAL COURSE: Date of Admission:09/25/20 Date of Discharge: 09/26/20 25 year-old female with a PMH significant for PCOS, 23-hour admit for acute appendicitis. Acute appendicitis --s/p lap appendectomy on 09/[address] Florez; appendix thickened, inflamed, not perforated --perioperative antibiotics per surgery; discharge on levofloxacin and metronidazole x 5 days --outpatient follow up with Dr. Florez Minutes to complete discharge: 35 Discharge Summary Problems reviewed: Yes Reason For Visit: ACUTE APPENDICITIS Current Active Problems Acute appendicitis (Acute) Condition: Improved - Instructions Diet, Activity, Other Instructions: Two prescriptions have been sent to your pharmacy, levofloxacin and metronidazole. Take these medications as directed. Please follow the post-op instructions given to you by Dr. Florez earlier today. Referrals: Alexsander Florez MD [Staff Physician] - Disposition: HOME This patient is new to me today: No Emergency Visit: Yes Care time: The patient presented to the Emergency Department on the above date and was hospitalized for further evaluation of their emergent condition. Critical Care patient: No - Discharge Referral Referred to [facility] Med P.C.: No
[2020-09-26] MEDS: SODIUM CHLORIDE 1,000 ML IV SCH (09:36)
[2020-09-26] MEDS ORDERED: PANTOPRAZOLE SODIUM 40 MG VIAL IVPUSH SCH (10:00)
[2020-09-26] MEDS ORDERED: ENOXAPARIN NA (PORCINE) 40 MG/0.4 ML DISP.SYRIN SQ SCH (10:00)
[2020-09-26] MEDS: IBUPROFEN 800 MG/8 ML IJ IVPB PRN (10:44)
[2020-09-26] MEDS: LACTATED RINGERS SOLUTION 1,000 ML IV SCH (12:17)
[2020-09-26 13:04] VITALS: BP 116/68; PULSE 71; TEMP 98.7
--- NOTE | 2020-09-26 18:56 | OP ---
DATE OF OPERATION: 09/25/2020 PREOPERATIVE DIAGNOSIS: Acute appendicitis. POSTOPERATIVE DIAGNOSIS: Acute appendicitis. PROCEDURE: Laparoscopic appendectomy, lavage. SURGEON: Alexsander Florez DO GENERAL MANAGER: None. ANESTHESIOLOGIST: Diandra Kerns M.D. SPECIMEN: Appendix. ESTIMATED BLOOD LOSS: Minimal. INTRAOPERATIVE FINDINGS: A very thickened, inflamed non-perforated appendix. DISPOSITION: To the recovery room in stable condition. BRIEF HISTORY: This is a 25-year-old female who presented to the [place] [facility] with signs and symptoms of acute appendicitis. She was started on intravenous antibiotics and presents now for surgery. DESCRIPTION OF PROCEDURE: The patient was placed in the supine position. General anesthesia was initiated. The abdomen was prepped and draped in sterile fashion. A Whipple catheter was inserted. Now a vertical incision was made infraumbilical, with scalpel used to go through skin and subcutaneous tissue. The fascia was then incised vertically. The peritoneum was entered bluntly. Next, a 0 Vicryl stitch was placed across the fascial defect and used to secure the Claude trocar. Pneumoperitoneum was then created, followed by the insertion of a 5-mm 30-degree laparoscope. Two 5- mm trocars were placed, one suprapubic and one in the left lower quadrant. Attention was turned toward the right lower quadrant. The appendix was seen. It was thickened, inflamed, non-perforated. A window was made at its base. The LigaSure device was used to divide the mesoappendix with multiple welts. The Endo TISHA Purple Load 45-mm stapler was then used to divide the appendix at its base in 1 firing. The staple line was inspected. It was intact. There was no bleeding, no breaks, no sign of ischemia. The appendix was placed in a specimen bag, removed through the infraumbilical trocar site, and sent to Pathology marked as "specimen." A limited lavage was done and all return was clear. The trocars were removed under direct visualization. No bleeding was noted. The fascia of the infraumbilical trocar site was closed with multiple interrupted 0 Vicryl sutures. The 3 skin incisions were closed with Biosyn, and Dermabond dressing was placed. At this point the operation terminated. The patient was sent to the recovery room in stable condition, and the Whipple catheter had been removed. DO LISA WILKS/[id number] MTDD
--- NOTE | 2020-09-27 17:06 | PATH ---
Surgical Pathology Report Patient Name: AFUA FLOR Med. Rec. #: [id number] /Age/Gender: 1995 (Age: 25) / F Account: [id number] Location: [facility] MED-SURG Taken: 09/25/2020 Received: 09/25/2020 Reported: 09/27/2020 Physicians: Alexsander Florez M.D. Specimen(s) Received APPENDIX Clinical History Acute appendicitis Final Diagnosis APPENDIX, LAPAROSCOPIC APPENDECTOMY: ACUTE APPENDICITIS. Electronically Signed Lori Reilly M.D. Gross Description Received in formalin, labeled "appendix," is a 7 cm. in length vermiform appendix with a stapled margin of resection and minimal attached fat. The serosa is castrejon-pink and smooth. Sectioning reveals an unremarkable lumen. The wall of the appendix averages 0.1 cm. in thickness. Entire specimen is submitted as follows: 1- initial sales representative health insurance sections, 2-stapled margin; 5-6-ehtltllpb of specimen. /09/25/2020 [facility]/09/25/2020
== END 2020-09-26 12:55 | disposition home or self-care (01) ==
LOC: FER 21:02 → FM/S 09-25 01:50 → UNDOADMIN 09-25 01:50 → FASUSAT 09-25 12:59 → FM/S 09-25 13:24 → FASUSAT 09-26 12:55
PROVIDERS: ATTEND Nurse Practitioner Acute Care
PROC: 0DTJ4ZZ Resection of Appendix, Percutaneous Endoscopic Approach (ICD-10-PCS; principal; 2020-09-25 11:50)
DX: K35.80 Unspecified acute appendicitis (principal); E28.2 Polycystic ovarian syndrome
CPT/HCPCS: 36415; 74177-TC; 80048; 80053; 81003; 83690; 84703; 85025; 85027; 85610; 86850; 86900; 86901; 87086; 88304-TC; 94760; 99285-25; C9803; J0131; Q9967; U0003

== ENCOUNTER 2024-03-01 12:10 | Emergency (ER) | payer OTHER ==
[2024-03-01 12:33] VITALS: BP 117/88; PULSE 99; RESP 18; TEMP 98.8; BMI 34.6
[2024-03-01] MEDS ORDERED: ACETAMINOPHEN 500 MG TABLET (FP) ONE (13:07)
[2024-03-01] MEDS ORDERED: ALBUTEROL SO4 2.5/IPRATROPIUM 0.5 INH SOL 3 ML VIAL.NEB. NEB ONE ×2 (13:09→13:54)
[2024-03-01] MEDS ORDERED: KETOROLAC TROMETHAMINE 30 MG/1 ML VIAL ONE (13:09)
[2024-03-01] MEDS: ALBUTEROL SO4 2.5/IPRATROPIUM 0.5 INH SOL 3 ML VIAL.NEB. NEB ONE (13:15)
[2024-03-01] MEDS: ACETAMINOPHEN 500 MG TABLET (FP) PO ONE (13:20)
[2024-03-01] MEDS: KETOROLAC TROMETHAMINE 30 MG/1 ML VIAL IM ONE (13:21)
[2024-03-01] MEDS ORDERED: ALBUTEROL SO4 HFA INHALER IH PRN (14:10)
[2024-03-01 14:38] LABS: THROAT:GRP A STREP NOT DETECTED (NOTDETECTED)
== END 2024-03-01 14:20 | disposition home or self-care (01) ==
LOC: FER 12:10
PROC: 3E0F7GC Introduction of Other Therapeutic Substance into Respiratory Tract, Via Natural or Artificial Opening (ICD-10-PCS; principal; 2024-03-01)
PROC: 3E0233Z Introduction of Anti-inflammatory into Muscle, Percutaneous Approach (ICD-10-PCS; 2024-03-01)
DX: J02.9 Acute pharyngitis, unspecified (principal); R05.1 Acute cough; R50.9 Fever, unspecified; R09.89 Other specified symptoms and signs involving the circulatory and respiratory systems; Z20.822 Contact with and (suspected) exposure to COVID-19
CPT/HCPCS: 0241U-QW; 71046-TC-FY; 81025; 87651; 99284-25